=== PATIENT | female | born 1955 | race Caucasian/White ===

== ENCOUNTER 2019-10-22 07:26 | Day surgery (SDC) | payer OTHER ==
[~2019-10-22] VITALS: Ht 170.2 cm; Wt 80.7 kg
[~2019-10-22 07:26] MED LIST: FISH OIL500 MG PO; MELATONIN5 M2 PO; MOTRIN IB200 MG PO; PERCOCET 5-3251 EACH PO; VITAMIN D5000 UNIT PO
[2019-10-22] MEDS ORDERED: ASPIR 8181 MG PO (07:44)
[2019-10-22] MEDS ORDERED: LIPITOR80 MG GT (07:44)
[2019-10-22] MEDS ORDERED: LISINOPRIL10 MG PO (07:45)
[2019-10-22] MEDS ORDERED: FISH OIL 1,0001 EAC2 NG (07:45)
[2019-10-22] MEDS ORDERED: NITROGLYCERIN0.4 MG SL (07:46)
--- NOTE | 2019-10-22 09:56 | NUR ---
10/22/19 0956 Nadia Worrell 09- PT ARRIVES TO PACU ON 2 L VIA NC. VSS. PT CLOSES EYES EASILY BUT AROUSES TO VERBAL STIMULUS AND ANSWERS QUESTIONS APPROPRIATELY. REPORT RECEIVED FROM JONNA CHAVEZ. PT DENIES PAIN/NAUSEA. SATS 99%
--- NOTE | 2019-10-22 18:30 | OR ---
[facility] [address] [place], [place] [address] Signed DATE OF OPERATION: 10/22/2019 SURGEON: Dick Remy MD PREOPERATIVE DIAGNOSIS: Colon screening (last colonoscopy 10 years ago). POSTOPERATIVE DIAGNOSES: 1. Extensive diverticular changes with fibrosis, sigmoid, and left colon. 2. Polyps x2 in rectosigmoid. PROCEDURES PERFORMED: 1. Total colonoscopy to cecum (prolonged complicated difficult). 2. Polypectomy x2, cold snare x1, and cold morcellation x1. ANESTHESIA: Intravenous sedation, fentanyl 250 mcg, and Versed 11 mg. INDICATION: A 64-year-old white woman is a patient of HARDEEP Carrero. She last underwent colonoscopy 10 years ago by me, which was essentially normal except for a few diverticula. She has also been diagnosed by me in the past with cervical mediastinoscopy and bronchoscopy to have sarcoidosis. This has cleared up entirely. She is symptom-free as regard to colon and is here to undergo surveillance colonoscopy, now 10 years since her last evaluation. The risks of bleeding, infection, and perforation related to colonoscopy reviewed with her in detail. She understands and wished to proceed. FINDINGS: The prep was good. A very challenging sigmoid and left colon were noted related to diverticulosis and attendant fibrosis. There was no stricture proper however. She had 2 polyps of the rectosigmoid at about 15 to 20 cm, one excised with cold snare technique, the other cold morcellation technique. There were no other findings of concern. DESCRIPTION OF PROCEDURE: The patient was brought to the endoscopy suite and placed in lateral decubitus position given intravenous sedation to the point of slurred speech and nystagmus. Digital rectal examination was normal. Electronically Signed By: DICK REMY MD 10/22/19 1830 PATIENT NAME: ANTON ASHBY OPERATIVE REPORT DATE OF : 57 REPORT #: [id number] PHYSICIAN: DICK REYM MD PCP: RADHA ODELL REPORT IS CONFIDENTIAL AND NOT TO BE RELEASED WITHOUT AUTHORIZATION [facility] [address] [place], [place] [address] Signed An Olympus video colonoscope was passed in the rectum and manipulated into the rectosigmoid, and then into the sigmoid. Angulation deformity and extensive diverticular changes made for challenging and gaining passage to the area. Ultimately, it was thought perhaps the colonoscope was attenuated and its capability, and the scope was withdrawn and another scope obtained. The scope was passed through this area once again, which was about 25 to 30 cm and again difficulty was noted. Abdominal wall stabilization, body position change, and other maneuvers were unsuccessful, and allowing the scope to pass this area despite efforts to do so and with extreme care to avoid perforation. The scope was withdrawn from that spot and one last effort was made with yet another colonoscope. With similar technique, the patient had fair amount of luck. The scope was then passed into the descending colon, which was easier to pass, but then again encountering similar such challenges in the splenic flexure area. The scope was ultimately passed beyond this, however, with all due care and additional sedation, ultimately intubating the cecum itself. Irrigation was undertaken, confirming no sign of abnormality of ileocecal valve or cecum. The scope was then withdrawn with all due care and evaluation showed no sign of abnormality other than extensive diverticular changes of the entire left colon and the sigmoid. At the rectosigmoid at 15 to 20 cm, two small polyps were noted. Once it was excised with cold snare technique, the other with cold morcellation technique. They may represent hyperplastic polyps based on narrow band imaging. Retroflexed view of the rectum showed internal hemorrhoids. She tolerated the procedure well. It was challenging to be sure and lasted 4 times longer than usual. CONCLUDING DIAGNOSES: 1. Polyps x2, probably hyperplastic. 2. Extensive diverticulosis with fibrosis. PLAN: Recommend high-fiber diet. Reconsideration for colonoscopy in 5 to 10 years depending on pathology findings will be undertaken. MD FARRUKH Mckeon/MODL /[id number] Electronically Signed By: DICK REMY MD 10/22/19 1830 PATIENT NAME: ANTON ASHBY OPERATIVE REPORT DATE OF : 57 REPORT #: [id number] PHYSICIAN: DICK REMY MD PCP: RADHA ODELL REPORT IS CONFIDENTIAL AND NOT TO BE RELEASED WITHOUT AUTHORIZATION [facility] [address] [place], [place] [address] Signed cc: HARDEEP Carrero Copies: ~ Electronically Signed By: DICK REMY MD 10/22/19 1830 PATIENT NAME: ANTON ASHBY OPERATIVE REPORT DATE OF : 57 REPORT #: [id number] PHYSICIAN: DICK REMY MD PCP: RADHA ODELL REPORT IS CONFIDENTIAL AND NOT TO BE RELEASED WITHOUT AUTHORIZATION
--- NOTE | 2019-10-25 17:32 | PATH ---
[facility] [address] [place], [place] [address] Signed SPECIMEN(S): A RECTOSIGMOID POLYP SPECIMEN(S): B RECTOSIGMOID POLYP SPECIMEN SOURCE: A. RECTOSIGMOID POLYP B. RECTOSIGMOID POLYP CLINICAL HISTORY: Screening. Post op: Diverticulosis, hemorrhoids, polyps x 2. MICROSCOPIC DESCRIPTION: Histologic sections of all submitted blocks are examined by light microscopy. These findings, together with the gross examination, support the pathologic diagnosis. FINAL PATHOLOGIC DIAGNOSIS: A. Mucosa, rectosigmoid colon, biopsy: - Hyperplastic polyp. B. Mucosa, rectosigmoid colon, biopsy: - Hyperplastic polyp. RAHULA:[facility]:C2NR GROSS DESCRIPTION: Two specimens are received in two containers, labeled "SW." A. The specimen, labeled "SW, #1" and "rectosigmoid polyp" on the requisition," is received in formalin and consists of three soft michelle tissue fragments that vary from 0.1-0.2 cm and are submitted in toto in cassette (A1). B. The specimen, labeled "SW, #2" and "rectosigmoid polyp" on the requisition, is received in formalin and consists of two soft michelle tissue fragments that measure 0.1 and 0.2 cm and are entirely submitted in cassette (B1). SS (under the direct supervision of a pathologist) The Gross Description was prepared using a voice recognition system. The report was reviewed for accuracy; however, sound-alike word errors, addition and/or deletions may occur. If there is any question about this report, please contact Client Services. PERFORMING LABORATORY: The technical component was performed by [facility], [address] [place] [id number] (Credit Support Counselor: Devi Rodriguez MD; CLIA# [id number]). PATIENT NAME: ANTON ASHBY PATHOLOGY DATE OF : 57 REPORT #: [id number] PHYSICIAN: PAM PATHOLOGY PCP: RADHA ODELL REPORT IS CONFIDENTIAL AND NOT TO BE RELEASED WITHOUT AUTHORIZATION [facility] [address] [place], [place] [address] Signed Professional interpretation was performed by [facility], [address] [facility] [address], [place] [address] (CLIA# [id number]). Diagnostician: Nj Mccarthy MD Pathologist Electronically Signed 10/25/2019 Copies: ~ PATIENT NAME: ANTON ASHBY PATHOLOGY DATE OF : 57 REPORT #: [id number] PHYSICIAN: PAM VERONICA PCP: RADHA OEDLL REPORT IS CONFIDENTIAL AND NOT TO BE RELEASED WITHOUT AUTHORIZATION
== END 2019-10-22 10:40 | disposition home or self-care (01) ==
LOC: OPS 07:26 → DS 07:26 → OPS 08:30 → DS 08:30 → OPS 10:40
PROVIDERS: Surgery
PROC: 0DBN8ZZ Excision of Sigmoid Colon, Via Natural or Artificial Opening Endoscopic (ICD-10-PCS; principal; 2019-10-22 08:30)
DX: Z12.11 Encounter for screening for malignant neoplasm of colon (principal); K63.5 Polyp of colon; K57.30 Diverticulosis of large intestine without perforation or abscess without bleeding; I25.2 Old myocardial infarction; D86.9 Sarcoidosis, unspecified; Z79.899 Other long term (current) drug therapy; Z98.890 Other specified postprocedural states
CPT/HCPCS: 99153; G0500; J2250; J3010; J7121

== ENCOUNTER 2024-03-10 06:01 | Emergency (ER) | payer MEDICARE ==
[~2024-03-10] VITALS: Ht 170.2 cm; Wt 86.1 kg
[~2024-03-10 06:01] MED LIST changes: +ASPIR 8181 MG PO; +FISH OIL 1,0001 EAC2 NG; +LIPITOR80 MG GT; +LISINOPRIL10 MG PO; +NITROGLYCERIN0.4 MG SL
[2024-03-10] MEDS ORDERED: ASPIRIN 81 MG CHEW PO ONE (06:15)
[2024-03-10] MEDS ORDERED: MORPHINE SULFATE 4 MG/ML VIAL IV ONE (06:15)
[2024-03-10] MEDS ORDERED: NITROGLYCERIN 0.4 MG SUBL SL PRN (06:15)
[2024-03-10] MEDS ORDERED: METOPROLOL SUCC25 MG (06:19)
[2024-03-10 06:29] LABS: BASOPHILS 0.6 % (0-2); EOSINOPHILS 1.5 % (0-6); HEMATOCRIT 37.4 % (35.0-50.0); HEMOGLOBIN 12.6 g/dL (12.0-18.0); LYMPHOCYTES 38.6 % (24-44); MCH 31.2 (27-36); MCHC 33.7 g/dl (30-36); MCV 92.5 fl (81-99); MONOCYTES 10.7 % (0-12); NEUTROPHILS 48.6 % (39-80); PLATELET COUNT 241 K/uL (140-440); RBC 4.04 M/ul (4.3-5.7); RDW 13.7 (10.5-15.0)
[2024-03-10 06:43] LABS: PARTIAL THROMBOPLASTIN TIME 27.8 Sec (22.9-41.3)
[2024-03-10 06:44] LABS: INR 0.88 (0.80-1.30); PROTIME 11.3 Sec (11.2-14.2)
[2024-03-10 06:51] LABS: ALBUMIN 3.7 g/dL (3.4-5.0); ALBUMIN/GLOBULIN RATIO 1.06 (1.1-2.4); ALKALINE PHOSPHATASE 120 U/L (46-116); ALT (SGPT) 36 U/L (14-59); ANION GAP 15.1 (7-21); AST (SGOT) 20 U/L (15-37); BUN/CREATININE RATIO 15.94 (6.0-28.6); CALCIUM 8.9 mg/dL (8.5-10.1); CARBON DIOXIDE 26 mmol/L (21-32); CHLORIDE 100 mmol/L (98-107); CREATININE, SERUM 0.69 mg/dL (0.55-1.02); GLOMERULAR FILTRATION RATE,EST 94 mL/min (>60); MAGNESIUM 1.9 mg/dL (1.8-2.4); POTASSIUM 4.1 mmol/L (3.5-5.1); PROTEIN, TOTAL 7.2 g/dL (6.4-8.2); UREA NITROGEN 11 mg/dL (7-18)
[2024-03-10 08:31] VITALS: BP 142/77
--- NOTE | 2024-03-10 11:49 | EKG ---
[facility] [address] [place] [address] Signed Normal sinus rhythm Left axis deviation Moderate voltage criteria for LVH, may be normal variant ( R in aVL , [employer] product ) Anterolateral infarct (cited on or before 23-JUL-2016) Abnormal ECG When compared with ECG of 23-JUL-2016 19:01, Questionable change in initial forces of Lateral leads ST no longer elevated in Anterior leads Nonspecific T wave abnormality no longer evident in Anterior leads Confirmed by Saud Vidal ([id number]) on 03/10/2024 11:48:46 AM Electronically Signed By: SAUD VIDAL MD 03/10/24 1149 PATIENT NAME: ANTON ASHBY Electrocardiogram DATE OF : 57 PHYSICIAN: SAUD VIDAL MD REPORT #: [id number] REPORT IS CONFIDENTIAL AND NOT TO BE RELEASED WITHOUT AUTHORIZATION
== END 2024-03-10 08:31 | disposition home or self-care (01) ==
LOC: ED 06:01
PROVIDERS: Family Medicine
DX: R07.89 Other chest pain (principal); I25.2 Old myocardial infarction; Z79.82 Long term (current) use of aspirin; Z79.899 Other long term (current) drug therapy
CPT/HCPCS: 36415; 71045; 80053; 83735; 83880; 84484; 85025; 85379; 85610; 85730; 93005; 93010; A9270; J2270

== ENCOUNTER 2025-07-21 11:32 | Day surgery (SDC) | payer MEDICARE ==
[~2025-07-21] VITALS: Ht 170.2 cm; Wt 86.0 kg
[~2025-07-21 11:32] MED LIST changes: +CEFAZOLIN SODIUM 2 GM in SODIUM CHLORIDE 0.9% 100 ML IV SCH; +IBLOOD GLUCOSE TEST STRIP 1 EA TEST VI PRN; +LACTATED RINGER'S 1,000 ML IV SCH; +LIDOCAINE HCL 1% 5 ML SDV INJ ONE; -LIPITOR80 MG GT; +LIPITOR80 MG PO; +METOPROLOL SUCC25 MG PO; +VITAMIN D250 MCG PO; -VITAMIN D5000 UNIT PO
[2025-07-21 12:05] VITALS: BP 151/78
[2025-07-21] MEDS ORDERED: LIDOCAINE HCL 2% 5 ML SDV ONE (12:19)
[2025-07-21 14:00] VITALS: BP 131/73
--- NOTE | 2025-07-21 14:14 | NUR ---
07/21/25 1414 Angelita Edward 1337 PT ARRIVED IN PACU SLEEPY. ABD SOFT. 1350 DR AT BEDSIDE. ALL QUESTIONS ANSWERED. 1355 SITTING UP IN BED SIPPING ON WATER. 1405 GETTING DRESSED. 1407 DC INSTRUCTIONS GIVEN. LEFT VIA W/C.
--- NOTE | 2025-07-21 15:31 | OR ---
[facility] [address] [place], [place] [address] Signed DATE OF OPERATION: 07/21/2025 SURGEON: Dick Remy MD PREOPERATIVE DIAGNOSES: History of hyperplastic polyps and known significant diverticular disease, sigmoid and left colon. POSTOPERATIVE DIAGNOSES: 1. Extensive diverticulosis, sigmoid and left colon. 2. Hyperplastic polyps x4, rectosigmoid. 3. Probable small adenomatous polyp at 70 cm, left colon. PROCEDURES: Total colonoscopy to cecum with cold morcellation polypectomy x5. ANESTHESIA: Intravenous sedation, propofol infusion, Magdaleno Holley CRNA. INDICATION: This 70-year-old white woman is a patient of HARDEEP Carrero, now no longer on the premises, but in [place], [place]. She underwent colonoscopy during the pandemic in 2019 where she was found to have two hyperplastic polyps as well as extensive diverticulosis. She is recommended to have repeat colonoscopy in 5 years or so. She has no family history of colon cancer. She has no current symptoms of bleeding, diarrhea, or constipation. Quite notably, she did have significant tolerance to the usual intravenous sedation plan of fentanyl and Versed previously and on that basis, I have recommended propofol infusional approach on this occasion. The risk of bleeding, infection, and perforation were reviewed with her. She understands and wished to proceed. FINDINGS: The prep was excellent. Complete colonoscopy was undertaken to the cecum. Passage to the sigmoid was not particularly problematic on this occasion due to heavy sedation. She did require more than usual. Extensive diverticula were seen in the sigmoid and left colon and two polyps as well as an adenomatous polyp of proximal descending colon, at least four hyperplastic polyps clustered in the rectosigmoid. DESCRIPTION OF PROCEDURE: The patient was brought to the endoscopy suite and placed in lateral decubitus position, Electronically Signed By: DICK REMY MD 07/21/25 1531 PATIENT NAME: ANTON ASHBY OPERATIVE REPORT DATE OF : 57 REPORT #: [id number] PHYSICIAN: DICK REMY MD PCP: NADIA MAY NP REPORT IS CONFIDENTIAL AND NOT TO BE RELEASED WITHOUT AUTHORIZATION [facility] [address] [place], [place] [address] Signed given intravenous sedation to the point of slurred speech and nystagmus with full cardiopulmonary monitoring by the Pricing Coordinator. A digital rectal examination was normal. An Olympus video colonoscope was passed in the rectum and manipulated throughout the colon noting numerous diverticula of the sigmoid and left colon. Scope was ultimately passed to the cecum with abdominal wall stabilization techniques. Ileocecal valve and appendiceal orifice were normal. Scope was withdrawn from that point. Examination showed no sign of abnormality until 70 cm from the anal verge where a sessile relatively small probably adenomatous polyp was noted. This was excised with multiple biopsies with forceps device. Further withdrawal confirmed numerous diverticula and in the rectosigmoid where a cluster of small hyperplastic appearing polyps were excised with cold morcellation technique. Further withdrawal showed internal hemorrhoidal changes. Scope was removed. The patient was taken to the recovery room in good condition. CONCLUDING DIAGNOSIS: Adenomatous polyp x1, probable hyperplastic polyps x4. PLAN: Recommend repeat colonoscopy in 10 years based on current findings. We will also maintain a high-fiber diet. She will return to the ongoing care of her primary provider Nadia May as appropriate. MD FARRUKH Mckeon/CORINNE /[id number] cc: HARDEEP Carrero, JOSETTE Copies: ~ Electronically Signed By: DICK REMY MD 07/21/25 1531 PATIENT NAME: ANTON ASHBY Marcelino OPERATIVE REPORT DATE OF : 57 REPORT #: [id number] PHYSICIAN: DICK REMY MD PCP: NADIA MAY NP REPORT IS CONFIDENTIAL AND NOT TO BE RELEASED WITHOUT AUTHORIZATION
--- NOTE | 2025-07-25 10:00 | PATH ---
[facility] [address] [facility] [place] [address] Signed SPECIMEN(S): A DESCENDING POLYP SPECIMEN(S): B SIGMOID POLYPS SPECIMEN SOURCE: A. DESCENDING POLYP B. SIGMOID POLYPS [id number] A CLINICAL HISTORY: History of polyps, history of sigmoid diverticulosis FINAL PATHOLOGIC DIAGNOSIS: A. Descending polyp: - Hyperplastic polyp (two fragments). B. Sigmoid polyps: - Hyperplastic polyp (multiple fragments). [facility] MICROSCOPIC EXAMINATION: Histologic sections of all submitted blocks are examined by light microscopy. These findings, together with the gross examination, support the pathologic diagnosis. GROSS DESCRIPTION: A. The specimen, labeled and designated "[place], descending polyp," is received in formalin and consists of five michelle soft tissue fragments, ranging from 0.1-0.4 cm. Entirely submitted in (A1). B. The specimen, labeled and designated "[place], sigmoid polyps," is received in formalin and consists of six michelle soft tissue fragments, ranging from 0.3-0.5 cm. Entirely submitted in (B1). VB (under the direct supervision of a pathologist) The Gross Description was prepared using a voice recognition system. The report was reviewed for accuracy; however, sound-alike word errors, addition and/or deletions may occur. If there is any question about this report, please contact Client Services. ADDITIONAL NOTES: Immunohistochemical and/or in situ hybridization studies if performed in this case included appropriate positive controls that reacted as expected. This test was developed and its performance characteristics determined by [facility] It has not been cleared or PATIENT NAME: ANTON ASHBY PATHOLOGY DATE OF : 57 REPORT #: [id number] PHYSICIAN: PAM VERONICA PCP: RADHA ODELL NP REPORT IS CONFIDENTIAL AND NOT TO BE RELEASED WITHOUT AUTHORIZATION [address] [place], [place] [address] Signed approved by the U.S. Food and Drug Administration. The FDA has determined that such clearance or approval is not necessary. This test is used for clinical purposes. It should not be regarded as investigational or for research. [facility] is certified under the Clinical Laboratory Improvement Amendments of 1988 (CLIA) as qualified to perform high complexity clinical laboratory testing. PERFORMING LABORATORY: Technical component was performed by [facility], [address] [place] [id number] (CLIA# [id number]). Professional interpretation was performed by [facility] - [address] [place] [address] (CLIA#: [id number]). Diagnostician: Bethel Villagran MD Pathologist Electronically Signed 07/25/2025 Copies: ~ PATIENT NAME: ANTON ASHBY PATHOLOGY DATE OF : 57 REPORT #: [id number] PHYSICIAN: PAM PATHOLOGY PCP: RADHA ODELL NP REPORT IS CONFIDENTIAL AND NOT TO BE RELEASED WITHOUT AUTHORIZATION
== END 2025-07-21 14:07 | disposition home or self-care (01) ==
LOC: DS 11:32
PROVIDERS: ATTEND Surgery
PROC: 0DBN8ZX Excision of Sigmoid Colon, Via Natural or Artificial Opening Endoscopic, Diagnostic (ICD-10-PCS; 2025-07-21)
PROC: 0DBG8ZX Excision of Left Large Intestine, Via Natural or Artificial Opening Endoscopic, Diagnostic (ICD-10-PCS; principal; 2025-07-21 13:00)
DX: Z12.11 Encounter for screening for malignant neoplasm of colon (principal); K63.5 Polyp of colon; K57.30 Diverticulosis of large intestine without perforation or abscess without bleeding; Z86.0100 Personal history of colon polyps, unspecified; D86.9 Sarcoidosis, unspecified
CPT/HCPCS: 00811; 88305; J0688; J2003; J2704; J7121